=== PATIENT | male | born 1975 | race Caucasian/White ===

== ENCOUNTER 2025-05-08 17:20 | Emergency (ER) | payer OTHER, SELFPAY ==
[2025-05-08 17:25] VITALS: BP 158/84; PULSE 78; RESP 16; TEMP 36.7; O2SAT 96; BMI 32.4
--- NOTE | 2025-05-08 18:04 | CRLHL7_ITS ---
For Patients: As a result of the Cures Act, medical imaging exams and procedure reports are released immediately into your electronic medical record. You may view this report before your referring provider. If you have questions, please contact your health care provider. INDICATION: Bilateral lateral chest pain TECHNIQUE: Chest radiograph 2 views COMPARISON: None FINDINGS: The sensitivity and specificity of the exam are moderately limited by the patient`s body habitus. Mediastinum: The mediastinum is normal in appearance. The heart silhouette is normal in size and morphology. Lung: Both lungs are unremarkable in appearance with small lung volumes. No sign of pleural effusion seen. No pneumothorax is identified. Bone and Soft tissue: Unremarkable for age. IMPRESSION: 1. No acute cardiopulmonary disease is seen. Dictated by Kendall Melton MD @ 05/08/2025 6:44:37 PM Dictated by: Kendall Melton MD @ 05/08/2025 18:44:39 (Electronically Signed)
--- NOTE | 2025-05-08 18:04 | ED_ITS ---
HPI - General Adult General Chief complaint: Chest Pain Stated complaint: right side pain/chest pain/neck pain Time Seen by Provider: 05/08/25 17:46 Source: patient Mode of arrival: ambulatory Limitations: no limitations History of Present Illness HPI narrative: 49-year-old male presents to the emergency department was 6 unrelated complaints today. First, he reports 3 hours of chest pain, bilateral diffuse chest but also points to the right lower flank area and the right cervical spine area. No trauma or injury. Pain is worse with deep inhalation. No productive cough or fever. It is accompanied by feeling of anxiety, nausea and also dizziness. It is a lightheaded type of dizziness, not a vertigo type of dizziness and cannot be reproduced with moving the head or position changes. Does not take any a nticoagulants. No movement deficits. He reports bilateral tingling in his feet ongoing for several months, does not know the etiology. He also reports several weeks of pain in the right cervical spine/trapezius area, worse with looking down. No weakness in his arms or radiculopathy into the arms. No new movement deficits. Reports similar symptoms about a year and half ago after drinking an energy drink. He reports that he was given a medication and symptoms improved. He has not been seen in our ED previously, no prior records available to review. He believes his symptoms today were connected to using bleach to clean off a deck. He did also have an energy drink about a 1/2 hour prior to symptoms starting while cleaning the deck. No fever. No productive cough. No history of DVT or PE. Reports his past medical history is notable for hypertension, gets his care through [facility]. He does not remember the medications that he takes but review of the records indicates that it might be lisinopril/hydrochlorothiazide. He denies a history of diabetes, prior neuropathy, focal stroke symptoms. ROS is otherwise benign times 12 systems. Nonsmoker. Denies prior surgeries. Related Data Home Medications ?Medication ?Instructions ?Recorded ?Confirmed lisinopril 20 1 tab PO DAILY 05/08/25 12/0 5/25 mg-hydrochlorothiazide 25 mg tablet tadalafil 10 mg tablet 10 mg PO 05/08/25 triamcinolone acetonide 0.1 % topical BID 05/08/25 topical ointment Allergies Allergy/AdvReac Type Severity Reaction Status Date / Time No Known Drug Allergies Allergy Verified 05/08/25 17:35 [facility] Social History Smoking Status: Current some day smoker How often do you have a drink containing alcohol: never How often do you have six or more drinks on one occasion: Never AUDIT-C Alcohol total score: 0 Non-prescribed substance use: denies use Exam Const: Vital Signs, click to edit/add: Vital Signs - 24 hr 05/08/25 17:25 05/08/25 19:39 05/08/25 19:50 Temperature 98.0 F 98.0 F 98.0 F Pulse Rate [Right Pulse Oximeter] 78 70 70 Respiratory Rate 16 16 16 Blood Pressure [Ri ght Upper Arm] 158/84 H 145/84 H 145/84 H Pulse Oximetry 96 96 Oxygen Delivery Me thod Room Air Room Air Documenting provider has reviewed patient's vital signs: yes Common normals: alert General appearance: well kempt Other: Anxious but cooperative. Appears well nourished and well hydrated. HENMT: Common normals: normocephalic, moist oral mucous membranes and oropharynx normal Head and scalp: normocephalic Face and sinus: normal facial exam Mouth: oral and palatal mucosa normal Throat: posterior oropharynx normal Eye: Common normals: PERRL, EOMs intact bilaterally and conjunctivae normal General eye: normal appearance of both eyes Conjunctiva: conjunctiva(e) normal Pupil: PERRL Neck & C-Spine: Common normals: full ROM and no lymphadenopathy General: normal visual inspection Cervical spine: cervical ROM normal; no cervical spine tenderness Other: Mild trapezius muscle tenderness, no point bony tenderness to the cervical spine. Resp: Common normals: normal respiratory effort, no use of accessory muscles and clear to auscultation bilaterally Effort & inspection: able to speak in complete sentences Auscultation: clear to auscultation bilaterally Cardio: Common normals: regular rate, regular rhythm, S1 normal heart sound, S2 normal heart sound and no murmurs Rate: regular rate Rhythm: regular rhythm Heart sounds: S1 normal and S2 normal GI: Common normals: Normal to inspection, nondistended, normoactive bowel sounds present, soft to palpation, non-tender, no hepatosplenomegaly and no masses Palpation: soft and no hepatosplenomegaly : Common normals: no CVA tenderness Bladder/kidney exam: no CVA tenderness Back & Pelvis: Common normals: no CVA tenderness Extremity: Common normals: normal to inspection, full ROM, normal capillary refill and no pedal edema Neuro: Sensorium/orientation: alert Speech: speech normal Gait (neuro): normal gait Motor exam: strength 5/5 throughout and no movement abnormalities noted Psych: Common normals: thought process normal Appearance: well kempt Attitude: engaged Activity/motor behavior: appropriate eye contact Thought process: normal thought process Attention/concentration: attention grossly intact Insight: fair Judgement: fair Skin: Common normals: no rashes or lesions noted General skin exam: no rashes or lesions noted Course Course ED Course: 41-year-old male with no prior cardiac history presenting with 3 hours of chest discomfort, cervical spine discomfort, tingling in both feet, nausea, dizziness. I do suspect that he has some anxiety but likely several underlying issues that he is now suddenly quite worried about presenting to the ED. I let the patient know that our priority will be excluding any dangerous immediate threat to his health today. Will perform a chest x-ray, EKG, typical cardiac labs. I suspected the cervical spine the discomfort is related to are she arthritis and mechanical issues. The tingling in his feet does not seem to be related to any type of stroke. His neurological exam was reassuring and I am not seeing any signs of vertigo or central source. I suspect that this is related to anxiety. Will give lorazepam 0.5 mg p.o. x1 and Tylenol 1000 mg p.o. x1. Await findings and workup. Reevaluation(s) Reevaluation #1: Update: Patient reports resolution of symptoms after the lorazepam and Tylenol. We spent some time reviewing his symptoms again. His blood work is essentially reassuring other than the fact that he is a little dehydrated. Counseled patient that I do not think he is drinking enough water. Then he is adding in an energy drink and toxic fumes in an enclosed area on an empty stomach and he is feeling lightheaded and dizzy. His lisinopril and hydrochlorothiazide may be contributing to that as well. It is important that he is drinking plenty of water and taking care of his body appropriately and avoiding energy drinks. It is okay for him to have 1 cup of coffee in the morning but I would strongly caution any additional similar agents in the afternoon. I do think that the tingling and dizziness were related to this as well. These have of course resolved. I do not think that there is a stroke or acute neurological event today. EKG, blood work are all quite reassuring. Patient informed of this. He is comfortable with this plan and workup, will continue his medications, make an attempt to drink more water and avoid energy drinks. We reviewed the alarm sy mptoms that would warrant stress testing and further workup down the road. He verbalizes understanding and agreement of this. Vital Signs Vital signs: Initial Vital Signs Temperature 98.0 F 05/08/25 17:25 Temperature Source Temporal Artery Scan 05/08/25 17:25 Pulse Rate 78 05/08/25 17:25 Respiratory Rate 16 05/08/25 17:25 Blood Pressure 158/84 H 05/08/25 17:25 Blood Pressure Mean 108 H 05/08/25 17:25 Blood Pressure Position Sitting 05/08/25 17:25 Pulse Oximetry 96 05/08/25 17:25 Oxygen Delivery Method Room Air 05/08/25 17:25 Vital Signs Temperature 98.0 F 05/08/25 17:25 Pulse Rate 78 05/08/25 17:25 Respiratory Rate 16 05/08/25 17:25 Blood Pressure 158/84 H 05/08/25 17:25 Pulse Oximetry 96 05/08/25 17:25 Oxygen Delivery Method Room Air 05/08/25 17:25 Temperature 98.0 F 05/08/25 19:50 Pulse Rate 70 05/08/25 19:50 Respiratory Rate 16 05/08/25 19:50 Blood Pressure 145/84 H 05/08/25 19:50 Pulse Oximetry 96 05/08/25 19:39 Oxygen Delivery Method Room Air 05/08/25 19:39 Medications Administered Medications: Discontinued Medications Generic Name Dose Route Start Last Admin Trade Name Freq PRN Reason Stop Dose Admin Acetaminophen 1,000 mg 05/08/25 18:04 05/08/25 18:20 Acetaminophen 500 Mg Tablet PO 05/08/25 18:05 1,000 mg ONCE ONE Administration Lorazepam 0.5 mg 05/08/25 18:04 05/08/25 18:20 Lorazepam 0.5 Mg Tablet PO 05/08/25 18:05 0.5 mg ONCE ONE Administration Medical Decision Making Lab Data Lab results reviewed: Yes I reviewed the patient's lab results Lab results narrative: Normal hemoglobin, mild leukocytosis of uncertain etiology. Electrolytes mostly reassuring, BUN is slightly elevated indicating some mild dehydration. ProBNP and CRP reassuring. No elevated troponin or signs of heart failure. Labs: Lab Results 05/08/25 05/08/25 Range/Units 18:04 18:26 WBC 12.88 H (4.50-11.00) K/uL RBC 4.85 (4.30-5.90) m/uL Hgb 15.2 (13.5-17.5) gm/dL Hct 45.0 (37.0-53.0) % MCV 93 (80-100) fL MCH 31 (26-34) pg MCHC 34 (32-36) gm/dL RDW Coeff of Elinor 12.2 (11.5-15.5) % Plt Count 262 (140-440) K/uL Neut % (Auto) 80.6 H (42.0-72.0) % Lymph % (Auto) 13.7 L (20-44) % [place] % (Auto) 4.6 (0.0-11.0) % Eos % (Auto) 0.5 (0.0-7.0) % Baso % (Auto) 0.4 (0.0-3.0) % Neut # (Auto) 10.40 H (1.7-7.0) K/uL Lymph # (Auto) 1.80 (0.90-2.90) K/uL [place] # (Auto) 0.60 (0.00-0.90) K/UL Eos # (Auto) 0.10 (0.00-0.50) K/uL Baso # (Auto) 0.10 (0.00-0.30) K/uL Abs Immat Gran (auto) 0.00 (0.00-0.30) K/uL Imm/Tot Granulo (auto) 0.2 % Sodium 132 L (135-149) mmol/L Potassium 3.7 (3.6-5.1) mmol/L Chloride 93 L (96-114) mmol/L Carbon Dioxide 26 (20-32) mmol/L Anion Gap 13 (7-15) mEq/L BUN 25 H (5-24) mg/dL Creatinine 1.3 (0.5-1.5) mg/dL Estimated Creat Clear 64.97 Estimated GFR 68 ml/min Glucose 111 (60-115) mg/dL Calcium 9.5 (8.4-10.6) mg/dL POC Troponin I High Sensi 3.4 (2.9-28.0) pg/mL NT-Pro-B Natriuret Pep < 20 (See Note) pg/mL Imaging Data Chest x-ray: Attestation: I have reviewed the pertinent imaging results. My impression: Normal chest x-ray Radiologist's impression: IMPRESSION: 1. No acute cardiopulmonary disease is seen. Dictated by Kendall Melton MD @ 05/08/2025 6:44:37 PM ECG Data Attestation: I personally reviewed and interpreted this ECG as follows: Prior ECG tracings: not available for review Interpretation: Sinus rhythm with a rate of 71. Normal intervals and axis, normal R-wave progression. No significant ST to T-wave abnormalities, normal EKG Discharge Plan Discharge Clinical Impression: Non-cardiac chest pain Patient Disposition: Home w/ Parent or Adult Condition: Improved Instructions: Noncardiac Chest Pain (ED) Additional Instructions: As we discussed, I think that the dizziness that you are experiencing is mainly because you are not drinking enough water on your blood pressure medication. Try to avoid energy drinks, especially in the afternoon as those are going to increase your anxiety and worsen your symptoms. I do think that the fumes, the energy drink and dehydration combined to cause your symptoms today. There does not seem to be any sign of heart failure, heart attack, dangerous infection or other worrisome causes today. I would like for you to rest for today and tomorrow. Drink lots of water. Continue taking your blood pressure medication as prescribed. Avoid those types of energy drinks in the future. Follow up with her primary care provider if things do not improve as would be expected in a few days. [place] comentamos, creo que el mareo que experimenta se debe principalmente a que no est? bebiendo suficiente agua mientras amber terrell medicamento para la presi?n arterial. Evite las bebidas energ?juana, especialmente por la tarde, ya que aumentar?n terrell ansiedad y empeorar?n maria r s?ntomas. Creo que la combinaci?n de los vapores, la bebida energ?ayan y la deshidrataci?n caus? maria r s?ntomas hoy. No pa rece hailee joslyn?n signo de insuficiencia card?lisa, infarto, infecci?n peligrosa ni otras causas preocupantes hoy. Me gustar?a que descansara hoy y ma?jesse. Elise vitaliy agua. Contin?e tomando terrell medicamento para la presi?n arterial seg?n lo recetado. Evite stone tipo de bebidas energ?juana en el futuro. Consulte con terrell m?dico de cabecera si la situaci?n no mejora ana se espera en unos d?as. Activity Level: Activity as Tolerated Discharge Diet: Regular Prescriptions: No Action triamcinolone acetonide 0.1 % ointment topical BID lisinopril-hydrochlorothiazide 20-25 mg tablet 1 tab PO DAILY tadalafil 10 mg tablet 10 mg PO Follow Up/Referrals: Kandice Ness MD [Primary Care Provider, Family Practice] Stand Alone Forms: [facility] Info Instructions
[2025-05-08] MEDS: ACETAMINOPHEN 500 MG TABLET 1000 MG PO (18:20)
[2025-05-08 18:34] LABS: Hematocrit* 45.0 % (37.0-53.0); Hemoglobin* 15.2 gm/dL (13.5-17.5); Immature Granulocytes Abs Auto 0.00 K/uL (0.00-0.30); Immature Granulocytes Pct Auto 0.2 %; Lymphocytes Absolute Auto 1.80 K/uL (0.90-2.90); Mean Corpuscular HGB Conc 34 gm/dL (32-36); Mean Corpuscular Hemoglobin 31 pg (26-34); Mean Corpuscular Volume 93 fL (80-100); RDW Coefficient of Variation % 12.2 % (11.5-15.5); Red Blood Count* 4.85 m/uL (4.30-5.90); Slide Review Reflex No; White Blood Count* 12.88 K/uL (4.50-11.00)
[2025-05-08 18:47] LABS: Chloride* 93 mmol/L (96-114); Potassium* 3.7 mmol/L (3.6-5.1); Sodium* 132 mmol/L (135-149)
[2025-05-08 18:50] LABS: Anion Gap 13 mEq/L (7-15); Blood Urea Nitrogen* 25 mg/dL (5-24); Carbon Dioxide* 26 mmol/L (20-32); Creatinine* 1.3 mg/dL (0.5-1.5); Est. Creatinine Clearance* 64.97; Estimated Glomerular Filt Rate 68 ml/min
[2025-05-08 18:51] LABS: Calcium* 9.5 mg/dL (8.4-10.6); Glucose* 111 mg/dL (60-115)
[2025-05-08 19:03] LABS: NT Pro B Type NatriureticPept* < 20 pg/mL (See Note)
[2025-05-08 19:39] VITALS: BP 145/84; PULSE 70; RESP 16; TEMP 36.7; O2SAT 96
[2025-05-08 19:50] VITALS: BP 145/84; PULSE 70; RESP 16; TEMP 36.7
== END 2025-05-08 19:51 | disposition home or self-care (01) ==
PROVIDERS: Emergency Provider Family Medicine; PCP Family Medicine
DX: R07.89 Other chest pain (principal); R42 Dizziness and giddiness
CPT/HCPCS: 36415; 71046; 80048; 83880; 84484; 85025; 93005; 99284; 99285; A9270